=== PATIENT | male | born 1995 | race African-American/Black ===

== ENCOUNTER 2018-04-30 12:40 | Emergency (ER) | payer MEDICAID ==
[~2018-04-30] VITALS: Ht 172.7 cm; Wt 63.5 kg
[2018-04-30 13:25] VITALS: BP 143/91
== END 2018-04-30 15:02 | disposition home or self-care (01) ==
LOC: ER 12:43
DX: S93.492A Sprain of other ligament of left ankle, initial encounter (principal); Z77.22 Contact with and (suspected) exposure to environmental tobacco smoke (acute) (chronic); Z88.0 Allergy status to penicillin; X50.3XXA Overexertion from repetitive movements, initial encounter; Y93.67 Activity, basketball; Y99.8 Other external cause status; Y92.89 Other specified places as the place of occurrence of the external cause
CPT/HCPCS: 29515; 73610

== ENCOUNTER 2023-06-22 06:05 | Emergency (ER) | payer MEDICAID ==
[~2023-06-22] VITALS: Ht 175.3 cm; Wt 73.0 kg
[2023-06-22] MEDS ORDERED: BACDST PO (07:35)
[2023-06-22] MEDS ORDERED: PRED20TA2 PO (07:35)
[2023-06-22 07:41] VITALS: BP 124/77; PULSE 79; RESP 18; O2SAT 97
== END 2023-06-22 08:00 | disposition home or self-care (01) ==
LOC: ER 06:05
DX: J01.90 Acute sinusitis, unspecified (principal); Z79.899 Other long term (current) drug therapy; Z88.0 Allergy status to penicillin